=== PATIENT | female | born 1975 ===

== ENCOUNTER 2025-01-08 05:25 | Day surgery (SDC) | payer OTHER ==
[2024-12-30 08:56] LABS: BASO % 0.5 % (0.1-1.2); EOS # 0.16 (0.04-0.54); EOS % 3.8 % (0.7-7.0); LYMPH # 1.17 (1.18-3.74); LYMPH % 28.1 % (19.3-53.1); MEAN PLATELET VOLUME 9.20 fl (9.4-12.4); MONO # 0.38 (0.24-0.82); MONO % 9.1 % (4.7-12.5); NEUT # 2.42 (1.56-6.13); NEUT % 58.3 % (34.0-71.1); RED CELL DISTRIBUTION WIDTH 15.7 % (11.6-14.4)
[2024-12-30 09:16] LABS: INR 0.94
[2024-12-30 09:56] LABS: ALT/SGPT 38.0 U/L (12-78); AST/SGOT 29.0 U/L (15-37); BILIRUBIN TOTAL 0.36 mg/dL (0.3-1.2); BUN CREA RATIO 32.0 (7.0-25.0); CREATININE SERUM 0.78 mg/dL (0.55-1.02); GFR 78.17; GLOBULINA 3.7 G/DL (2.4-3.5); GLUCOSE FASTING 96.0 mg/dL (65-100); OSMOLALITY SERUM 284.0 MOSM/KG (275-295)
[2024-12-30 10:56] VITALS: BP 133/87
[~2025-01-08] VITALS: Ht 175.3 cm; Wt 74.8 kg
[~2025-01-08 05:25] MED LIST: MELOXICAM15 MG PO; MULTIPLE VITAM1 EAC2 PO; TYLENOL ARTHRI650 MG PO
[2025-01-08] MEDS ORDERED: POVIDONE-IODINE 118 ML BOTT TOP ONE (09:15)
== END 2025-01-08 15:10 | disposition home or self-care (01) ==
LOC: CIR.AMB 05:25
PROVIDERS: ATTEND Obstetrics & Gynecology Maternal & Fetal Medicine
DX: N85.02 Endometrial intraepithelial neoplasia [EIN] (principal)

== ENCOUNTER 2025-02-20 07:30 | Inpatient (IN) | payer OTHER ==
[~2025-02-20] VITALS: Ht 172.7 cm; Wt 74.8 kg
[2025-02-20] MEDS ORDERED: ZYRTEC10 MG PO (08:51)
[2025-02-20 08:52] VITALS: BP 107/68
[2025-02-20 08:53] LABS: BASO % 0.8 % (0.1-1.2); EOS # 0.19 (0.04-0.54); EOS % 5.0 % (0.7-7.0); LYMPH # 1.24 (1.18-3.74); LYMPH % 32.8 % (19.3-53.1); MEAN PLATELET VOLUME 8.90 fl (9.4-12.4); MONO # 0.38 (0.24-0.82); MONO % 10.1 % (4.7-12.5); NEUT # 1.94 (1.56-6.13); NEUT % 51.3 % (34.0-71.1); RED CELL DISTRIBUTION WIDTH 14.4 % (11.6-14.4)
[2025-02-20 08:59] VITALS: BP 131/82
[2025-02-20 09:20] LABS: INR 0.99
[2025-02-20 09:29] LABS: ALT/SGPT 33.0 U/L (12-78); AST/SGOT 29.0 U/L (15-37); BILIRUBIN TOTAL 0.45 mg/dL (0.3-1.2); BUN CREA RATIO 24.0 (7.0-25.0); CHOL HDL RATIO 2.3 (0-5.0); CREATININE SERUM 0.91 mg/dL (0.55-1.02); GFR 65.43; GLOBULINA 3.9 G/DL (2.4-3.5); GLUCOSE FASTING 97.0 mg/dL (65-100); HDL 104.0 mg/dl (40-60); LDL 126.0 mg/dl (0-130); OSMOLALITY SERUM 283.0 MOSM/KG (275-295); T4 FREE 0.97 NG/ML (0.76-1.46); TSH 1.16 uIU/mL (0.358-3.74); VLDL 11.0 (0-39)
[2025-02-26] MEDS ORDERED: CLINDAMYCIN PHOSPHATE 150 MG/ML (900mg) ONE (07:37)
[2025-02-26] MEDS ORDERED: POVIDONE-IODINE 118 ML BOTT TOP ONE (08:26)
[2025-02-26] MEDS ORDERED: THROMBIN,HU/FIBRINOGEN/CALCIUM 10 ML SYRINGE TOP ONE (11:02)
[2025-02-26] MEDS ORDERED: VISTASEAL DUAL APPICATOR 1 EACH APPL TOP ONE (11:02)
[2025-02-26] MEDS ORDERED: SUGAMMADEX SODIUM 200 MG/2 ML VIAL IV ONE (11:27)
[2025-02-26] MEDS ORDERED: KETOROLAC TROMETHAMINE 30 MG VIAL IV SCH (12:00)
[2025-02-26] MEDS ORDERED: MORPHINE SULFATE 4 MG/ML CARTRIDGE IV PRN (12:00)
[2025-02-26] MEDS ORDERED: CEFAZOLIN SODIUM 1,000 MG VIAL IV SCH (12:00)
[2025-02-26] MEDS ORDERED: METRONIDAZOLE/SODIUM CHLORIDE 500 MG/100 ML PIGGYBACK IV ONE (13:43)
[2025-02-26] MEDS ORDERED: KETOROLAC TROMETHAMINE 30 MG VIAL ONE (13:43)
[2025-02-26] MEDS ORDERED: CEFAZOLIN SODIUM 1,000 MG VIAL ONE (13:43)
[2025-02-26 14:36] VITALS: BP 107/68
[2025-02-26] MEDS ORDERED: SIMETHICONE 125 MG CAPSULE PO SCH (17:00)
[2025-02-26 17:41] VITALS: BP 116/64
[2025-02-26] MEDS ORDERED: ENOXAPARIN SODIUM 40 MG/0.4 ML SYRINGE SUBCUTANEO ONE (22:30)
[2025-02-27 00:35] VITALS: BP 97/60
[2025-02-27 04:30] VITALS: BP 110/66
[2025-02-27 08:00] VITALS: BP 117/73
[2025-02-27] MEDS ORDERED: SENNOSIDES 1 TAB TABLET PO SCH (09:00)
[2025-02-27] MEDS ORDERED: ACETAMINOPHEN 500 MG GEL..CAP PO PRN (10:15)
[2025-02-27 11:40] LABS: BASO % 0.3 % (0.1-1.2); EOS # 0.09 (0.04-0.54); EOS % 1.3 % (0.7-7.0); LYMPH # 1.57 (1.18-3.74); LYMPH % 23.3 % (19.3-53.1); MEAN PLATELET VOLUME 9.20 fl (9.4-12.4); MONO # 0.54 (0.24-0.82); MONO % 8.0 % (4.7-12.5); NEUT # 4.50 (1.56-6.13); NEUT % 66.7 % (34.0-71.1); RED CELL DISTRIBUTION WIDTH 14.0 % (11.6-14.4)
[2025-02-27] MEDS ORDERED: KETOROLAC TROMETHAMINE 10 MG TABLET PO SCH (12:00)
[2025-02-27 12:34] LABS: ALT/SGPT 23.0 U/L (12-78); AST/SGOT 27.0 U/L (15-37); BILIRUBIN TOTAL 0.67 mg/dL (0.3-1.2); BUN CREA RATIO 11.0 (7.0-25.0); CREATININE SERUM 1.0 mg/dL (0.55-1.02); GFR 58.69; GLOBULINA 3.3 G/DL (2.4-3.5); GLUCOSE FASTING 100.0 mg/dL (65-100); OSMOLALITY SERUM 286.0 MOSM/KG (275-295)
[2025-02-27 19:11] VITALS: BP 122/78
[2025-02-28 00:25] VITALS: BP 102/66
[2025-02-28 08:00] VITALS: BP 126/82
== END 2025-02-28 10:23 | disposition home or self-care (01) | DRG 743 ==
LOC: O/R 02-26 07:00 → SURH 02-26 07:30 → O/R 02-26 12:22 → OB/GYN 02-26 13:19
PROVIDERS: ADMIT Obstetrics & Gynecology; ATTEND Obstetrics & Gynecology
PROC: 0UT74ZZ Resection of Bilateral Fallopian Tubes, Percutaneous Endoscopic Approach (ICD-10-PCS; 2025-02-26)
PROC: 0UT24ZZ Resection of Bilateral Ovaries, Percutaneous Endoscopic Approach (ICD-10-PCS; 2025-02-26)
PROC: 0TJB8ZZ Inspection of Bladder, Via Natural or Artificial Opening Endoscopic (ICD-10-PCS; 2025-02-26)
PROC: 0UT94ZZ Resection of Uterus, Percutaneous Endoscopic Approach (ICD-10-PCS; principal; 2025-02-26 09:15)
DX: D25.1 Intramural leiomyoma of uterus (principal); N85.02 Endometrial intraepithelial neoplasia [EIN]

== ENCOUNTER 2025-02-20 10:45 | Outpatient (CLI) | payer OTHER ==
[~2025-02-20 10:45] MED LIST changes: +ZYRTEC10 MG PO
[2025-02-20 11:21] LABS: URINE APPEARANCE Clear; URINE BILIRRUBIN Negative (NEGATIVE); URINE BLOOD Negative; URINE COLOR Yellow; URINE GLUCOSE Negative (NEGATIVE); URINE KETONE Negative (NEGATIVE); URINE LEUKOCYTE Negative; URINE NITRATE Negative; URINE PROTEIN Negative (NEGATIVE); URINE UROBILINOGEN 0.2 E.U./dl
[2025-02-20 11:22] LABS: URINE BACTERIA 109.2 uL (0.0-1933); URINE EPITHELIAL CELLS 6.2 uL (0.0-38.8); URINE RBC 2.0 uL (0.0-20.8); URINE WBC 8.1 uL (0.0-23.2)
[2025-02-20 11:42] LABS: URINE CAST 0.00 uL (0.0-1.40)
== END 2025-02-20 10:46 | disposition home or self-care (01) ==
LOC: LAB 10:45
PROVIDERS: ATTEND Obstetrics & Gynecology Gynecology
DX: N39.0 Urinary tract infection, site not specified (principal)